=== PATIENT | female | born 1945 | race Caucasian/White ===

== ENCOUNTER 2017-08-13 20:13 | Inpatient (IN) | payer OTHER ==
[~2017-08-13] VITALS: Ht 152.4 cm; Wt 65.8 kg
[2017-08-13 20:20] VITALS: BP 165/64
[2017-08-13] MEDS ORDERED: METFORMIN HCL500 MG PO (20:23)
[2017-08-13] MEDS ORDERED: CLOPIDOGREL75 MG PO (20:24)
[2017-08-13] MEDS ORDERED: PROZAC20 MG PO (20:25)
[2017-08-13] MEDS ORDERED: ASPIR 8181 MG PO (20:25)
[2017-08-13] MEDS ORDERED: OMEPRAZOLE 20 M20 M1 PO (20:25)
[2017-08-13] MEDS ORDERED: LEVOTHYROXINE100 MC1 PO (20:26)
[2017-08-13] MEDS ORDERED: NEURONTIN 300300 M1 PO (20:26)
[2017-08-13] MEDS ORDERED: NOVOLOG100 UNIT/1 SUBQ (20:26)
[2017-08-13] MEDS ORDERED: LISINOPRIL10 MG PO (20:26)
[2017-08-13 20:49] LABS: URINE BILIRUBIN NEGATIVE (Negative); URINE BLOOD NEGATIVE (Negative); URINE CLARITY CLEAR; URINE COLOR YELLOW; URINE GLUCOSE-RANDOM NEGATIVE (Negative); URINE KETONES NEGATIVE (Negative); URINE LEUKOCYTES-REFLEX 1+ (Negative); URINE NITRITE-REFLEX NEGATIVE (Negative); URINE PROTEIN NEGATIVE (Negative); URINE SPECIFIC GRAVITY 1.015 (1.005-1.030); URINE UROBILINOGEN 0.2 E.U./dl (0.2-1.0)
[2017-08-13 20:49] LABS: ABSOLUTE BASOPHILS 0.1 thou/uL (0.0-0.2); ABSOLUTE EOSINOPHILS 0.2 thou/uL (0.0-0.7); ABSOLUTE LYMPHOCYTES 3.4 thou/uL (0.8-5.3); ABSOLUTE MONOCYTES 0.5 thou/uL (0.0-1.2); ABSOLUTE NEUTROPHILS 4.2 thou/uL (1.6-8.1); EOSINOPHILS 2.4 %; HEMATOCRIT 39.9 % (37.0-47.0); LYMPHOCYTES 40.7 %; MCHC 32.6 g/dL (28.0-37.0); MONOCYTES 5.4 %; MPV 7.8 fl. (7.2-11.1); NUCLEATED RBCS 0 /100WBC; PLATELET COUNT* 237 thou/uL (150-400); POLYS 50.5 %; RBC 4.48 mil/uL (4.20-5.00); RDW-CV 15.4 % (10.5-14.5); WBC 8.3 thou/uL (4.0-11.0)
[2017-08-13 20:58] LABS: BACTERIA-REFLEX >30 Many /HPF (None Seen); CASTS None Seen /LPF (None Seen); CRYSTALS None Seen /LPF (None Seen); MUCUS 0-3 Light strn/LPF (None Seen); SQUAMOUS 0-3 Few /LPF (0-3); URINE RBC 3-10 Few /HPF (0-2); WBC CLUMPS Few (None Seen)
[2017-08-13 21:07] LABS: ANION GAP 7 mmol/L (7-16); BUN 11 mg/dL (7-18); CALCIUM 9.7 mg/dL (8.5-10.1); CHLORIDE 93 mmol/L (98-107); CO2 34 mmol/L (21-32); CREATININE 1.2 mg/dL (0.6-1.3); GLUCOSE 144 mg/dL (70-99); POTASSIUM 3.9 mmol/L (3.5-5.1); SODIUM 134 mmol/L (136-145)
[2017-08-13 21:18] LABS: ALBUMIN 3.9 g/dL (3.4-5.0); ALKALINE PHOSPHATASE 59 U/L (46-116); NT-PRO BRAIN NAT PEPTIDE 78 pg/mL (<300); SGOT 85 U/L (15-37); SGPT 65 U/L (30-65); TOTAL BILIRUBIN 0.4 mg/dL (<0.1-1.0); TOTAL PROTEIN 7.2 g/dL (6.4-8.2); TROPONIN-I LEVEL <0.06 ng/mL (<0.06)
[2017-08-13 21:46] LABS: INR 1.1; PROTIME 10.3 Seconds (9.20-11.50)
[2017-08-13 22:54] VITALS: BP 117/63
[2017-08-14 00:19] VITALS: BP 111/36
--- NOTE | 2017-08-14 00:49 | NUR ---
ARRIVED FROM ER ALERT AND ORIENTED X4. UP AD RAJI WITHOUT DIFFICULTY. NO C/O PAIN OR NAUSEA AT THIS TIME. RESTING QUIETLY IN BED AT THIS TIME. IVF INFUSING WITHOUT DIFFICLTY. OREINTED TO ROOM AND BED CONTROLS. FAMILY AT BEDSIDE. CALL LIGHT WITHIN REACH. WILL CONTINUE TO MONITOR,
[2017-08-14 04:32] LABS: HEMATOCRIT 38.3 % (37.0-47.0); HEMOGLOBIN 12.6 gm/dL (12.0-15.0); MCH 29.2 pg (26.0-34.0); MCHC 32.9 g/dL (28.0-37.0); MCV 88.9 fL (80.0-100.0); MPV 7.9 fl. (7.2-11.1); RBC 4.31 mil/uL (4.20-5.00); RDW-CV 15.4 % (10.5-14.5); WBC 7.2 thou/uL (4.0-11.0)
[2017-08-14 04:44] LABS: ALBUMIN 3.2 g/dL (3.4-5.0); CALCIUM 8.6 mg/dL (8.5-10.1); CREATININE 1.1 mg/dL (0.6-1.3); POTASSIUM 4.2 mmol/L (3.5-5.1); TOTAL BILIRUBIN 0.4 mg/dL (<0.1-1.0); TOTAL PROTEIN 6.3 g/dL (6.4-8.2)
--- NOTE | 2017-08-14 06:50 | NUR ---
ALERT AND ORIENTED X4. UP AD RAJI IN ROOM. NO C/O PAIN OR NAUSEA. SLEPT QUIETLY THROUGHTOUT NIGHT. RECEIVED IV ANTIBIODICS. IVF INFUSING WITHOUT DIFFICULTY. CALL LIGHT WITHIN REACH
[2017-08-14 08:30] VITALS: BP 116/70
[2017-08-14 11:01] LABS: CALCIUM 8.8 mg/dL (8.5-10.1); POTASSIUM 4.2 mmol/L (3.5-5.1)
[2017-08-14 16:15] VITALS: BP 130/80
--- NOTE | 2017-08-14 17:00 | NUR ---
PT.ALERT AND ORIENTED. ASKING FOR DPOA FOR HEALTH CARE DECISIONS. DUE TO LATENESS OF HOUR IN DAY,CM GAVE AND EXPLAINED DPOA AND TOLD HER I WOULD NOTARIZE IT IN THE AM. PT.LIVES WITH SPOUSE. IS INDEPENEDENT AT HOME. DOES NOT USE ANY DME. NO HX OF HH OR SNF. HAS A SUPPORTIVE FAMILY. GRANDAUGHTERS HERE AT PRESENT. WILL NOT HAVE ANY DISCHARGE NEEDS.
--- NOTE | 2017-08-14 17:20 | NUR ---
ALERT AND ORIENTED X4. UP AD RAJI IN ROOM. IV IS PATENT AND INFUSING. DENIES PAIN AND NAUSEA. TOLERATING DIET. MONITORING BLOOD SUGARS. VSS ON ROOM AIR. HOURLY ROUNDS HAVE BEEN MAINTAINED THROUGHOUT SHIFT. CALL LIGHT IS WITHIN REACH. NURSING WILL CONTINUE TO MONITOR.
--- NOTE | 2017-08-14 18:06 | EKG ---
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
--- NOTE | 2017-08-14 18:18 | EKG ---
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
[2017-08-14 20:00] VITALS: BP 119/62
[2017-08-15 05:33] LABS: CALCIUM 8.9 mg/dL (8.5-10.1); CREATININE 1.1 mg/dL (0.6-1.3); POTASSIUM 4.3 mmol/L (3.5-5.1)
--- NOTE | 2017-08-15 05:36 | NUR ---
PATIENT ALERT AND ORIENTED. VITALS STABLE. RA. DENIES ANY NEEDS OR DISCOMFORT. UP INDEPENDENTLY. FLUIDS INFUSING PER ORDER. INSTRUCTED TO CALL FOR ASSISTANCE. SLEPT COMFORTABLY THORUGH THE NIGHT. HOURLY ROUNDS. NURSING WILL CONTINUE TO MONITOR.
[2017-08-15 08:45] VITALS: BP 114/68
[2017-08-15] MEDS ORDERED: SYNTHROID50 MCG PO (08:59)
[2017-08-15 09:03] VITALS: BP 114/68
[2017-08-15] MEDS ORDERED: SYNTHROID88 MCG PO (09:03)
[2017-08-15] MEDS ORDERED: KEFLEX500 M1 PO (10:39)
--- NOTE | 2017-08-15 10:59 | NUR ---
PATIENT DISCHARGED TO HOME AT THIS TIME. IV REMOVED. PATIENT VERBALIZED UNDERSTANDING OF DC INSTRUCTIONS. SCRIPTS FOR SYNTHROID AND KEFLEX GIVEN. PATIENT DISCHARGED WITH GRANDDAUGHTER.
--- NOTE | 2017-08-15 11:08 | NUR ---
PT.DISCHARGED TODAY BEFORE CM COULD GET IN TO NOTARIZE DPOA FOR HEALTH CARE.
--- NOTE | 2017-08-15 14:47 | EKG ---
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1945 Requested By: Ubaldo Campuzano Order Number: [id number] Reading MD: Michel Keenan Measurements Intervals [place] Rate: 67 P: 59 [place]: 165 QRS: 38 QRSD: 86 T: -42 QT: 391 QTc: 413 Interpretive Statements Sinus rhythm Low voltage, precordial leads Borderline T abnormalities, diffuse leads Compared to ECG 08/14/2017 14:22:22 Low QRS voltage now present T-wave abnormality now present Myocardial infarct finding no longer present Prolonged QT interval no longer present Electronically Signed On 08-15-2017 14:47:29 CDT by Michel Keenan [email or web address] <ELECTRONICALLY SIGNED> By: Michel Keenan MD, FACC 08/15/17 1447 0838 0838 Michel Keenan MD, FACC /EPI
== END 2017-08-15 11:00 | disposition home or self-care (01) | DRG 644 ==
LOC: M.ERS 20:13 → M.ORTHSURG 21:29 → M.TBA-ER 21:29 → M.ORTHSURG 23:06
PROVIDERS: Emergency Medicine; Internal Medicine; ADMIT Internal Medicine
DX: E03.9 Hypothyroidism, unspecified (principal); N39.0 Urinary tract infection, site not specified; E11.9 Type 2 diabetes mellitus without complications; M19.90 Unspecified osteoarthritis, unspecified site; E78.00 Pure hypercholesterolemia, unspecified; Z88.6 Allergy status to analgesic agent; Z79.82 Long term (current) use of aspirin; Z79.899 Other long term (current) drug therapy; Z86.718 Personal history of other venous thrombosis and embolism; Z86.73 Personal history of transient ischemic attack (TIA), and cerebral infarction without residual deficits